=== PATIENT | female | born 1995 | race Caucasian/White ===

== ENCOUNTER 2016-09-29 22:49 | Emergency (ER) | payer OTHER ==
[2016-09-29 23:20] VITALS: BP 126/80; PULSE 108; RESP 21; O2SAT 99
--- NOTE | 2016-09-29 23:21 | ED.REPORT ---
HPI-Head Prob / Injury Date of Service Sep 29, 2016 ED Provider: Micheal Quintana Pt is a healthy 21 y/o female presenting to the ED due to fall from horse which occurred today. The patient was riding a full sized horse and fell off of it hitting her head, neck, and right shoulder for which she is experiencing mild pain in each of those locations. She denies any change in LOC although she is mildly confused. She denies nausea, vomiting, numbness/weakness/tingling, abdominal pain, chest pain. Nursing Notes Stated Complaint: R SHOULD PAIN/FALL FROM HORSE Nursing Notes Reviewed: Yes Allergies: Coded Allergies: No Known Allergies (Unverified Allergy, 05/21/12) General Time Seen by Provider: 23:21 Chief Complaint Blunt head trauma Hx Obtained From: Patient Arrived By: Walk-in Onset Occurred: Just prior to arrival Symptom Duration: Since onset Caused by: Blunt trauma Quality: Painful Severity: Current: Mild Severity: Maximum: Moderate Recent Healthcare: No recent doctor visit, No recent hospitalization Similar Sx Previous: No Past Medical History Past Medical History None reported Past Surgical History None reported Smoking History Unknown if Ever Smoker Social History Alcohol Use: Denies alcohol use Drug Use: Denies drug use Ambulatory Status Independent Review of Systems GI: Denies: Abdominal pain, Nausea, Vomiting Musculoskeletal: Reports: Extremity pain, Neck pain Neurologic: Reports: Confusion, Headache, Denies: Change LOC, Focal weakness, Numbness, Weakness Complete sys rev & neg: except as marked. Cardiovascular: Denies: Chest pain Physical Exam Initial Vital Signs Vital Signs (First) Date Time Temp Pulse Resp B/P Pulse Ox O2 Delivery O2 Flow Rate FiO2 09/29/16 23:20 36.8 108 21 126/80 99 Room Air See RN paper sheet, normal Initial VS: Reviewed, Vital signs normal Respiratory: Breath sounds normal, Clear to auscultation, No respiratory distress Cardiovascular: Regular rate & rhythm, Heart sounds normal, Intact distal pulses Abdomen / GI: Soft, Non-tender, No guarding, No rebound, No distention Skin: Warm, Dry, No cyanosis Psychiatric: Mood/affect normal, Behavior normal, Normal thought content General/Constitutional: Awake, Alert, No acute distress, Cooperative, Not toxic appearing Head / Eyes: Atraumatic, Normocephalic, PERRL ENT: Atraumatic, Airway patent, Mucous membranes moist Neck: No crepitus Trauma - Neck Specific: Positive: Immobilized - C Collar Neurologic: Oriented X3, Speech NL, No motor deficits, No sensory deficits Mildly confused Upper Extremity / MS: No deformity, Neurologic intact, Vascular intact Mild R shoulder tenderness Interpretation & Diagnostics Lab Results Interpretation Test 09/30/16 00:40 09/30/16 00:48 Hold Urine Received (Received) Hold Purple Top Tube Received (Received) Hold Blue Top Tube Received (Received) Hold Red Top Tube Received (Received) Hold Arpin Top Tube Received (Received) X-Ray Chest Interpretation Chest Xray Interpretation: No displaced rib fracture, no pneumo or hemothorax No infiltrate View: Portable, 1 view Interpretation / Wet Read by: Wet read ED physician X-Ray Interpretation X-Ray Ordered: Pelvis Interpretation / Wet Read by: Wet read ED physician Interpretation: Normal exam, No fracture/dislocation X-Ray Ordered: Shoulder right Interpretation / Wet Read by: Wet read ED physician Interpretation: Normal exam, No fracture/dislocation CT Head Interpretation No CT evidence of hemorrhage, mass, or acute infarct. Interpreted by Des Bailey MD Study: Head CT no contrast Interpretation / Wet Read by: Interpret - Radiologist CT C-Spine Interpretation Conclusion: No CT evidence of fracture or dislocation. Interpreted by Des Bailey MD Study type: CT no contrast Interpretation / Wet Read by: Interpret - Radiologist Re-Eval/Medical Decision Med Decision/Clinical Course Patient presents concussed and confused after suffering head injury. Associated headache present. Concern for skull fracture. Concern for cervical spine fracture. CTs were reassuring. She is observed and the concussion symptoms cleared up. I think she may have a right acromioclavicular separation. Chest x-ray was normal. Cardiopulmonary examination remained completely normal. Chest x-ray was normal. Vital signs stable. She is discharged in stable condition. Re-Evaluation/Progress : Time of Eval: 00:58 Re-Evaluation/Progress Note: Pt rechecked. Informed pt of plan for discharge. Pt understands and agrees with plan for discharge. F/U instructions and RTER warnings given. All questions addressed. Counseled Regarding: Diagnosis, Need for follow-up, When/why to return to ED Discharge & Departure Primary Impression: Fall from horse Encounter type: initial encounter Qualified Code: V80.010A - Animal-rider injured by fall from or being thrown from horse in noncollision accident, initial encounter Additional Impressions: Blunt trauma of multiple sites Head injury Encounter type: initial encounter Qualified Code: S09.90XA - Unspecified injury of head, initial encounter Acromioclavicular sprain Encounter type: initial encounter Laterality: right Qualified Code: S43.51XA - Sprain of right acromioclavicular joint, initial encounter Disposition: Home All VS Reviewed: Yes Condition: Stable Patient Instructions: Head Injury (ED) Additional Instructions: The CT scans of your head and neck showed no sign of dangerous injury. The x-rays of you chest, pelvis, and right shoulder showed no signs of fracture. You may have an AC sprain of your right shoulder. Wear the sling until your pain is decreased. Take 1-2 [place] every 6 hours as needed for moderate-severe pain. Do not drive, drink alcohol, or consume Acetaminophen while taking [place]. You may have a mild concussion. Do not participate in any activities that may put you at risk for another injury until you are cleared by a primary care doctor. You may follow-up with the orthopedist referred to you if you continue to experience shoulder pain. Return to the emergency department for any new or worsening symptoms. Referrals: Leif Richardson MD (PCP) Qu[place] Chaudhryibsammy Attestation Portions of this note were transcribed by Kaleb Aguirre. I, Dr. Quintana personally performed the history, physical exam and medical decision-making; I reviewed and confirmed the accuracy of the information in the transcribed note. copies to: Leif Richardson MD, Todd P DO Sep 29, 2016 23:21 KALEB AGUIRRE Sep 29, 2016 23:34
[2016-09-30 01:00] VITALS: BP 104/61; PULSE 81; RESP 17; O2SAT 98
--- NOTE | 2016-09-30 08:48 | DRSVH ---
PROCEDURE: X-RAY PELVIS, ONE OR TWO VIEWS ([id number]) INDICATIONS: fell off a horse, pain TECHNIQUE: 1 view(s) of the pelvis acquired. COMPARISON: None. FINDINGS: Bones: No fractures or dislocations. No suspicious bony lesions. Soft tissues: Visualized bowel gas pattern is normal. No suspicious soft tissue calcifications. IMPRESSION: No acute fracture. No osseous lesion. If symptoms and/or clinical suspicion for patholog y persist, further assessment with repeat, or advanced imaging (e.g., CT, MRI, or bone scan) may be h elpful for further assessment. Dictated by: Godfrey Rosado M.D. on 09/30/2016 at 8:46 Approved by: Godfrey Rosado M.D. on 09/30/2016 at 8:47
--- NOTE | 2016-09-30 08:50 | DRSVH ---
PROCEDURE: X-RAY CHEST ONE VIEW, PORTABLE ([id number]) INDICATIONS: fell off a horse, pain TECHNIQUE: One view of the chest was acquired. COMPARISON: None. FINDINGS: Surgical changes and devices: None. Lungs and pleura: No pleural effusions or pneumothorax. Lungs are clear. Mediastinum: Mediastinal contours appear normal. Heart size is normal. Bones and chest wall: No suspicious bony lesions. Overlying soft tissues appear unremarkable. IMPRESSION: No acute process. Dictated by: Godfrey Rosado M.D. on 09/30/2016 at 8:48 Approved by: Gofdrey Rosado M.D. on 09/30/2016 at 8:49
--- NOTE | 2016-09-30 08:51 | DRSVH ---
PROCEDURE: X-RAY RIGHT SHOULDER, MINIMUM TWO VIEWS ([id number]) INDICATIONS: fell off a horse, pain TECHNIQUE: 3 views of the shoulder were acquired. COMPARISON: None. FINDINGS: Bones: No fractures or dislocations. No suspicious bony lesions. Visualized ribs appear intact. Soft tissues: No suspicious soft tissue calcifications. IMPRESSION: No acute fracture. No osseous lesion. If symptoms and/or clinical suspicion for patholog y persist, further assessment with repeat, or advanced imaging (e.g., CT, MRI, or bone scan) may be h elpful for further assessment. Dictated by: Godfrey Rosado M.D. on 09/30/2016 at 8:49 Approved by: Godfrey Rosado M.D. on 09/30/2016 at 8:49
--- NOTE | 2016-09-30 09:03 | DRSVH ---
PROCEDURE: CT BRAIN WITHOUT CONTRAST ([id number]) INDICATIONS: trauma, fell off a horse, dazed and confused, neck TECHNIQUE: Noncontrast 4.5 mm thick angled axial sections acquired from the foramen magnum to the vertex, with c oronal reformats. COMPARISON: None. FINDINGS: Image quality: Excellent. CSF spaces: Basal cisterns are patent. No extra-axial fluid collections. Ventricles are normal in size and shape. Brain: No midline shift. No intracranial masses or hemorrhage. Le-white matter interface is norm al. Skull and face: Calvarium and visualized facial bones are intact, without suspicious lesions. Sinuses: Visualized sinuses and mastoids are clear. IMPRESSION: 1. No acute intracranial process. Dictated by: Tyra Veloz M.D. on 09/30/2016 at 9:01 Approved by: Tyra Veloz M.D. on 09/30/2016 at 9:02
--- NOTE | 2016-09-30 09:06 | DRSVH ---
PROCEDURE: CT CERVICAL SPINE WITHOUT CONTRAST ([id number]) INDICATIONS: trauma, fell off a horse, dazed and confused, neck TECHNIQUE: Noncontrast 3 mm thick sections acquired from the skull base to the T4 level. Sagittal and coronal r eformats were then constructed. For radiation dose reduction, the following was used: automated exp osure control, adjustment of mA and/or kV according to patient size. COMPARISON: None. FINDINGS: Image quality: Excellent. Bones: No fractures or dislocations. Visualized superior ribs are intact. Soft tissues: Prevertebral soft tissues are normal in thickness. No paravertebral hematomas. No ap ical pneumothoraces. IMPRESSION: No visualized fracture. Dictated by: Tyra Veloz M.D. on 09/30/2016 at 9:02 Approved by: Tyra Veloz M.D. on 09/30/2016 at 9:04
== END 2016-09-30 01:00 | disposition home or self-care (01) ==
LOC: SED 22:49
DX: S43.51XA Sprain of right acromioclavicular joint, initial encounter (principal); S09.8XXA Other specified injuries of head, initial encounter; V80.010A Animal-rider injured by fall from or being thrown from horse in noncollision accident, initial encounter; Y93.52 Activity, horseback riding; Y99.8 Other external cause status; Y92.89 Other specified places as the place of occurrence of the external cause
CPT/HCPCS: 70450; 71010; 72125; 72170; 73030; 99284; G0390